=== PATIENT | female | born 1985 | race Caucasian/White ===

== ENCOUNTER 2017-10-05 09:25 | Emergency (ER) ==
[2017-10-05 09:32] VITALS: BP 133/94; TEMP 98.6; BMI 26.5
--- NOTE | 2017-10-05 10:00 | ED.PDOC ---
General ED Provider: Dr. CARLEY HOLLIDAY Chief Complaint: Eye Problem Stated Complaint: right upper eyelid edema Time Seen by Physician: 09:30 (tender right upper eye lid rash, edema ) Mode of Arrival: Walk-In Information Source: Patient Exam Limitations: No limitations Nursing and Triage Documentation Reviewed and Agree: Yes Reviewed sepsis parameters & appropriate labs ordered?: Yes System Inflammatory Response Syndrome: Not Applicable Sepsis Protocol: For patient's 13 years and over: Temp is 96.8 and below OR 101 and greater Pulse >90 BPM Resp >20/minute Acutely Altered Mental Status Are patient's symptoms suggestive of a new infection, such as: -Pneumonia -Skin, Soft Tissue -Endocarditis -UTI -Bone, Joint Infection -Implantable Device -Acute Abdominal Infection -Wound Infection -Meningitis -Blood Stream Catheter Infection -Unknown System Inflammatory Response Syndrome: Not Applicable EENT Complaint Exam - Eye Complaint/Exam Onset/Duration: 1 day rash a nd edema involving upper eye lid right sided Symptoms Are: Still present Timing: Constant (x1 day with pain cornea WNL AND NONETENDER ) Initial Severity: Mild Current Severity: Mild Location: Discreet (UPPER LID ), Right Aggravating: Reports: Blinking Associated Signs and Symptoms: Denies: Photophobia, Clear drainage, Purulent drainage, Vision impairment, Fever ( SEE PHOTOS), Swelling Related History: Reports: Similar episode (PT STATED SHE HAS HAD THE SAME RASH AND PAIN IN THE PAST) Eye Surgical History: Reports: None Penetrating Injury Risk Factors: None Globe Rupture Risk Factors: None Acute Glaucoma Risk Factors: None Optic Artery Occlusion Risk Factors: None Visual Acuity Right Eye: 20/100 Visual Acuity Left Eye: 20/25 Visual Field: Normal Extraocular Movement: Normal Orbit Findings: Normal (EXCEPT FOR RASH) Lid Findings: Erythema (SEE PHOTOS) Conjunctival Findings: Red Corneal Findings: Clear Fundi: Normal Differential Diagnoses: Periorbital Cellulitis Review of Systems - Review Of Systems Constitutional: Reports: No symptoms Eyes: Reports: Pain Ears, Nose, Mouth, Throat: Reports: No symptoms Respiratory: Reports: No symptoms Cardiac: Reports: No symptoms GI: Reports: No symptoms : Reports: No symptoms Musculoskeletal: Reports: No symptoms Skin: Reports: No symptoms Neurological: Reports: No symptoms Endocrine: Reports: No symptoms Hematologic/Lymphatic: Reports: No symptoms All Other Systems: Reviewed and Negative Past Medical History - Past Medical History Previously Healthy: No Endocrine: Reports: Hypothyroid Cardiovascular: Reports: Hypertension Respiratory: Reports: None Hematological: Reports: None Gastrointestinal: Reports: None Genitourinary: Reports: None Neuro/Psych: Reports: None Musculoskeletal: Reports: None Cancer: Reports: None Last Menstrual Period: n/a - Surgical History General Surgical History: Reports: Unknown - Family History Family History: Reports: Unknown - Social History Smoking Status: Current every day smoker Hx Substance Use: No Alcohol Screening: None Physical Exam - Physical Exam Appearance: Well-appearing, No pain distress, Well-nourished Eyes: STEVEN (RIGHT UPPER LID IS INFLAMMED WITH A FOCAL CRUSTY RASH AND THE PERRLA OTHERWISE) ENT: Ears normal, Nose normal, Oropharynx normal Respiratory: Airway patent, Breath sounds clear, Breath sounds equal, Respirations nonlabored Cardiovascular: RRR, Pulses normal, No rub, No murmur GI/: Soft, Nontender, No masses, Bowel sounds normal, No Organomegaly Musculoskeletal: Normal strength, ROM intact, No edema, No calf tenderness Skin: Warm, Dry, Normal color Neurological: Sensation intact, Motor intact, Reflexes intact, Cranial nerves intact, Alert, Oriented Psychiatric: Affect appropriate, Mood appropriate Physician Notification - Case Discussed Physician Notified: CHARISSE CASAS Time of Notification: 10:09 (TRANSFER NOW) Critical Care Note - Critical Care Note Total Time (mins): 0 Course - Course Vital Signs: Temp Pulse Resp BP Pulse Ox 10/05/17 09:27 98.6 F 87 16 133/94 H 97 Departure - Departure Time of Disposition: 10:08 Disposition: HOME SELF-CARE Discharge Problem: Eye pain Qualifiers: Laterality: right Qualified Code(s): H57.11 - Ocular pain, right eye Instructions: Eye Pain (ED) Condition: Good Pt referred to PMD for follow-up: Yes IPMP verified?: Yes Allergies/Adverse Reactions: Allergies alprazolam [From Xanax] Adverse Reaction (Verified 10/05/17 09:34) aspirin Adverse Reaction (Verified 10/05/17 09:35) Home Medications: Ambulatory Orders 1 [No Reported Medications] 10/05/17 Disposition Discussed With: Patient
[2017-10-05] MEDS ORDERED: NORCO 10-325 PO STA (14:48)
[2017-10-05] MEDS ORDERED: ZOFRAN 4 MG/2 ML IVP STA (14:58)
--- NOTE | 2017-10-05 15:59 | CT ---
EXAM: CT orbits with contrast HISTORY: Right orbital edema. This began 2 days prior COMPARISON: None TECHNIQUE: Serial axial images of the orbits were obtained after the administration of 75 ml of Omni paque-350 IV contrast. This was reviewed in multiple planes. FINDINGS: There is mild soft tissue swelling and hazy ground-glass in the right periorbital soft tiss ues. There is no focal fluid collection. The orbital globe is intact. The retrobulbar structures a re normal. Inflammation does not extend into the right maxilla and minimal extension into the proxim al forehead. Intracranial contents are unremarkable. No abnormal contrast enhancing lesion. Paranasal sinuses ar e clear. The mastoid air cells are unremarkable. There is no abnormal contrast enhancing lesion. IMPRESSION: There is right periorbital cellulitis with no focal fluid collection or subcutaneous gas.
== END 2017-10-05 16:25 | disposition home or self-care (01) ==
LOC: ED 09:25
DX: H57.11 Ocular pain, right eye (principal); H02.841 Edema of right upper eyelid; R21 Rash and other nonspecific skin eruption; F17.210 Nicotine dependence, cigarettes, uncomplicated
CPT/HCPCS: 36415; 80053; 85025; 96374; 99283

== ENCOUNTER 2019-03-03 16:59 | Outpatient (CLI) | END 2019-03-03 17:24 | disposition short-term general hospital (02) | LOC: AMBL 16:59 | PROVIDERS: ATTEND Internal Medicine Geriatric Medicine | DX: R21 Rash and other nonspecific skin eruption (principal); L29.9 Pruritus, unspecified; T07.XXXA Unspecified multiple injuries, initial encounter; W57.XXXA Bitten or stung by nonvenomous insect and other nonvenomous arthropods, initial encounter ==